=== PATIENT | male | born 1950 | race Caucasian/White ===

== ENCOUNTER 2020-10-05 15:57 | Emergency (ER) | payer MEDICARE ==
--- NOTE | 2020-10-05 18:40 | CT ---
CT OF THE BRAIN WITHOUT CONTRAST: 10/05/20 Comparison is made with the 07/22/18 study. Diffuse atrophy and chronic ischemic changes in the deep white matter are again evident. There was no intracranial bleeding or extra-axial hematoma seen. There was no evidence of acute stroke, mass, or edema. The skull appears intact with no evidence for fracture. The visible paranasal sinuses and mast oid air cells are clear. IMPRESSION: No acute intracranial findings. Preliminary report called to Dr. Hernández at 1706 on 10/05/20. POS: HOME
--- NOTE | 2020-10-05 18:48 | CT ---
CT OF THE CERVICAL SPINE 10/05/[address] of the cervical spine was performed following trauma. No fracture was seen at any cervical level. The soft tissues are normal in thickness and the C1 to de ns distance is normal. There is slight disc space narrowing at C3-C4 and more notable narrowing at C4 -C5 and C6-C7, C7-T1. C5 and C6 seem partially fused. Slight anterolisthesis of C4 on C5 appears to b e due to facet changes. Arthritic changes are prominent throughout the spine. Findings by level follo w: C1-C2: No acute findings. C2-C3: Mild right foraminal narrowing. Facet arthritis, especially on the right. C3-C4: Severe left facet arthritis. Moderate to severe left foraminal narrowing, mild to moderate rig ht foraminal narrowing. C4-C5: Disc osteophyte complex concentrically. Moderate bilateral foraminal narrowing and facet arthr itis. C5-C6: No acute findings. C6-C7: Minor left foraminal narrowing. C7-T1: Some facet changes but no acute findings. Foramina are difficult to assess at this level. T1-T2: No acute findings. The lung apices are clear and show no pneumothorax. No soft tissue abnormalities in the neck were det ected. IMPRESSION: Loss of cervical lordosis. Diffuse severe degenerative change. No fracture seen. Preliminary report called to Dr. Hernández at 1706 on 10/05/20. POS: HOME
--- NOTE | 2020-10-05 18:52 | RAD ---
CHEST TWO VIEWS: 10/05/20 Moderate cardiomegaly is about the same as on the 02/06/19 study. There is no vascular congestion or e juliana. Blunting of the right costophrenic angle is chronic in this patient. Scoliosis and arterioscler osis are noted as usual. There is no mediastinal widening or shift. The lungs are clear though hyperi nflated. An AICD is in place as before. No fractures were appreciated. IMPRESSION: Cardiomegaly and arteriosclerosis. Chronic blunting of the right costophrenic angle. No acute finding s. POS: HOME
--- NOTE | 2020-10-05 18:53 | RAD ---
LEFT SHOULDER THREE VIEWS: 10/05/20 No fracture, dislocation, or AC joint widening was seen. An apparent step-off near the humeral neck o n the Y-view appears to be artifactual in nature. This area has no evidence of fracture on other view s. IMPRESSION: No acute finding. POS: HOME
--- NOTE | 2020-10-05 18:56 | RAD ---
LUMBAR SPINE THREE VIEWS: 10/05/20 Comparison is made with a 08/25/07 MRI. Scoliosis convexed left is present. No acute fracture was seen . A degenerated disc at L3-L4 is chronic and has been seen previously. There is an old anterior slippage of S1 on S2, presumably due to old trauma. The finding is certainly not new. An aortic iliac stent is present in place around where the patient has had aneurysmal dilat ion of the aorta. IMPRESSION: Chronic changes but no acute finding. POS: HOME
--- NOTE | 2020-10-05 18:57 | RAD ---
LEFT WRIST THREE VIEWS: 10/05/20 No prior films were available for comparison. Wire suture is seen around the base of the first metacarpal and extending down over the trapezium. S evere arthritic changes are seen in this first carpometacarpal joint as well as between the trapezium and other carpal bones. No acute bony injuries were detected. The distal radius and ulna appear inta ct. IMPRESSION: Chronic changes but no acute findings. POS: HOME
--- NOTE | 2020-10-06 06:58 | RAD ---
RIGHT FOOT 3 VIEWS: Date: 10/05/2020 The bones are somewhat osteoporotic, which could obscure some fractures. No major fracture was identi fied. However, on the oblique view, there was an equivocal line in the cuboid that extends to the tar sometatarsal joint with the fourth and fifth metatarsals. I do not see this on any other view, and it seems most likely that this is an unusual trabecular marking. Nevertheless, if the patient has point tenderness to palpation on the cuboid itself, then further evaluation or follow-up may be needed. A calcaneal spur is noted of moderate size. Some bony spurring is seen in the ankle joint. IMPRESSION: Equivocal line in the cuboid on one view only. Thought to be more likely a trabecular marking than fr acture. However, this finding should be correlated with the physical examination and consider follow- up images if he indeed has point tenderness in this location. CODE T. POS: HOME
== END 2020-10-05 18:03 | disposition home or self-care (01) ==
LOC: BURERS 15:57
DX: S63.502A Unspecified sprain of left wrist, initial encounter (principal); S40.022A Contusion of left upper arm, initial encounter; S80.01XA Contusion of right knee, initial encounter; M54.5 Low back pain; G89.29 Other chronic pain; J44.9 Chronic obstructive pulmonary disease, unspecified; I50.9 Heart failure, unspecified; I48.91 Unspecified atrial fibrillation; E78.5 Hyperlipidemia, unspecified; Z79.899 Other long term (current) drug therapy; Z79.01 Long term (current) use of anticoagulants; Z79.82 Long term (current) use of aspirin; V89.2XXA Person injured in unspecified motor-vehicle accident, traffic, initial encounter
CPT/HCPCS: 70450; 71046; 72100; 72125

== ENCOUNTER 2020-10-13 15:45 | Outpatient (CLI) | payer MEDICARE ==
--- NOTE | 2020-10-13 17:47 | RAD ---
LEFT WRIST: 10/13/20 Three views. HISTORY: Wrist pain. COMPARISON: 10/05/20. FINDINGS: Postoperative and degenerative changes of the first carpometacarpal joint again noted. Narrowing of t he radiocarpal joint again noted. No fracture. No interval change. IMPRESSION: Stable findings when compared to 10/05/20. POS: [facility]
--- NOTE | 2020-10-13 17:50 | RAD ---
RIGHT ANKLE: 10/13/20 Three views. HISTORY: Ankle pain. Mild soft tissue swelling laterally. Mild degenerative change at the tibiotalar joint. Nonspecific raymon cency in the talar dome could represent osteochondritis. No acute fracture. Small spur from the plantar calcaneus. IMPRESSION: No acute fracture. Degenerative change noted. Question osteochondral changes in the dome of the talus . POS: [facility]
== END 2020-10-13 15:46 | disposition home or self-care (01) ==
LOC: BURRAD 15:45
PROVIDERS: ATTEND Family Medicine
DX: M25.571 Pain in right ankle and joints of right foot (principal); M25.532 Pain in left wrist; M19.071 Primary osteoarthritis, right ankle and foot

== ENCOUNTER 2020-11-14 14:10 | Outpatient (CLI) | payer MEDICARE ==
--- NOTE | 2020-11-15 07:25 | CT ---
CT LUMBAR SPINE WITHOUT CONTRAST: Date: 11-14-2020 Comparison: Recent plain radiographs of the lumbar spine dated 10-05-2020, as well as a review of the prior MRI dated 08-25-07. FINDINGS: To maintain consistency in vertebral numbering with prior reports, the vertebrae that appears anterio rly displaced is S1 on S2 and the obviously degenerated disc space in the lumbar spine is L3-4. There is a grade IV to V spondylolisthesis of S1 on S2 which is long-standing. It was present on the 2006 MRI and the appearance is not markedly different than it was previously. There is a markedly deg enerated disc with narrowing and vacuum phenomenon at L3-4 with prominent anterior and posterior oste ophytes. Findings by level follow: T12-L1: No acute findings. L1-L2: No acute findings. L2-L3: Very slight disc space narrowing. Some facet hypertrophy, but no spinal stenosis. L3-L4: Degenerated disc with vacuum phenomenon and disc space narrowing. There is end plate sclerosi s on both sides of the disc space. A posterior osteophyte centrally effaces the thecal sac. The AP di ameter of the canal at this point with the osteophyte is about 8-9 mm. L4-L5: Facet and ligamentous hypertrophy without foraminal narrowing. L5-S1: No acute findings. S1-S2: Grade IV-V spondylolisthesis of S1 on S2 as before. Appearance is not markedly different than was seen previously. There is a lower abdominal aortic aneurysm near the bifurcation that contains an [id number] stent . The maximal width of the aneurysm is about 3.3 cm. The stents go into the common iliac arteries, dallin th of which are dilated, but particularly the left common iliac artery is about 2.6 cm wide. An incid ental finding is a prior left nephrectomy. IMPRESSION: 1. Grade IV-V spondylolisthesis of S1 on S2. Its appearance seems little different than the prior MR I. 2. Markedly degenerated disc at L3-L4, but without gross impingement. POS: HOME
== END 2020-11-14 14:11 | disposition home or self-care (01) ==
LOC: BURCT 14:10
PROVIDERS: ATTEND Family Medicine
DX: M51.16 Intervertebral disc disorders with radiculopathy, lumbar region (principal); M43.18 Spondylolisthesis, sacral and sacrococcygeal region
CPT/HCPCS: 72131